=== PATIENT | female | born 1935 | race Caucasian/White ===

== ENCOUNTER 2019-02-16 07:36 | Inpatient (IN) | payer MEDICARE ==
[2019-02-16] VITALS (16 sets, daily range): BP systolic 107–138; BP diastolic 64–88
[~2019-02-16] VITALS: Ht 165.1 cm; Wt 44.5 kg
[~2019-02-16 07:36] MED LIST: ALPHAGAN 5 ML5 ML OPH; DIGOXIN0.125 MG PO; XALATAN 2.5 ML2.5 M1 OPH
[2019-02-16 08:13] LABS: BASO % 0.6 % (0.0-1.0); EOS # 0.1 10*3/uL (0.0-0.4); EOS % 1.9 % (1.0-4.0); HEMATOCRIT 47.7 % (37.0-47.0); HEMOGLOBIN 15.5 g/dl (12.0-16.0); LYMPH % 18.6 % (27.0-41.0); MEAN CELL VOLUME 95.8 fl (81.0-99.0); MEAN CORPUSCULAR HGB 31.1 pg (27.0-31.0); MEAN CORPUSCULAR HGB CONC 32.5 g/dl (33.0-37.0); MEAN PLATELET VOLUME 10.4 fl (9.6-12.3); MONO # 0.5 10*3/uL (0.1-1.0); MONO % 9.8 % (3.0-9.0); NEUT # 3.7 10*3/uL (2.3-7.9); NEUT % 68.9 % (47.0-73.0); PLATELET COUNT AUTOMATED 257 10*3/uL (130-400); RED BLOOD COUNT 4.98 10*6/uL (4.10-5.10); RED CELL DISTRI WIDTH 13.5 % (0-14.5); WHITE BLOOD COUNT 5.3 10*3/uL (4.8-10.8)
[2019-02-16 08:25] LABS: ACT PARTIAL THROMBO TIME 29.1 SECONDS (20.0-32.1)
[2019-02-16 08:30] LABS: ALBUMIN 3.5 gm/dl (3.1-4.5); ALKALINE PHOSPHATASE 92 U/L (45-117); BUN 17 mg/dl (7-24); CHLORIDE 108 mmol/L (98-107); CREATININE 0.78 mg/dL (0.55-1.02); POTASSIUM 3.8 mmol/L (3.5-5.1); SGOT/AST 37 IU/L (3-35); SGPT/ALT 43 U/L (12-78); SODIUM 141 mmol/L (136-145); TOTAL PROTEIN 7.1 gm/dL (6.4-8.2)
[2019-02-16 08:33] LABS: TROPONIN I < 0.015 ng/ml (<0.045)
--- NOTE | 2019-02-16 10:00 | NUR ---
A 83, admitted to , under the services of HEDY Moore DO with a diagnosis of A-FIB RVR. Chief complaint is SHORTNESS OF BREATH FAST HEART RATE-PALPITATIONS. Patient arrived via stretcher from ER. Monitor applied. Initial assessment completed. Vital signs taken and recorded. HEDY MOORE DO notified of admission to the unit. Orders received. See assessment for past medical history, medications and allergies. Patient and/or family oriented to unit. [address] visitation policy reviewed. Clothing/patient valuable form completed. DARWIN FIGUEROA
[2019-02-16] MEDS ORDERED: ELIQUIS2.5 M1 PO (10:40)
--- NOTE | 2019-02-16 10:46 | NUR ---
Notified Dr. Mario of patients arrival to and her med rec has been completed. Brief history was reviewed. No new orders physician to follow up at patients bedside.
[2019-02-16 11:33] LABS: BILIRUBIN NEGATIVE (NEGATIVE); BLOOD 1+ (NEGATIVE); CLARITY SL CLOUDY (CLEAR); COLOR YELLOW (YELLOW); GLUCOSE NEGATIVE (NEGATIVE); KETONE TRACE (NEGATIVE); LEUKO ESTERASE 3+ (NEGATIVE); NITRITE NEGATIVE (NEGATIVE); PH 6.5 (5.0-9.0); UROBILINOGEN 0.2 E.U./dl (0.2-1.0)
[2019-02-16 11:51] LABS: BACTERIA 2+; WBC TNTC wbc/hpf (0-5)
[2019-02-17] VITALS (12 sets, daily range): BP systolic 90–124; BP diastolic 48–74
--- NOTE | 2019-02-17 01:16 | NUR ---
REPEAT B/P MANUALLY IS 98/52 AND PULSE OX 94% ON 2L NC.
[2019-02-17 06:18] LABS: BASO % 0.6 % (0.0-1.0); EOS # 0.1 10*3/uL (0.0-0.4); EOS % 1.4 % (1.0-4.0); HEMATOCRIT 41.6 % (37.0-47.0); HEMOGLOBIN 13.5 g/dl (12.0-16.0); LYMPH # 0.9 10*3/uL (1.3-4.4); LYMPH % 17.6 % (27.0-41.0); MEAN CELL VOLUME 94.8 fl (81.0-99.0); MEAN CORPUSCULAR HGB 30.8 pg (27.0-31.0); MEAN CORPUSCULAR HGB CONC 32.5 g/dl (33.0-37.0); MEAN PLATELET VOLUME 10.3 fl (9.6-12.3); MONO # 0.5 10*3/uL (0.1-1.0); MONO % 10.3 % (3.0-9.0); NEUT # 3.6 10*3/uL (2.3-7.9); NEUT % 69.9 % (47.0-73.0); PLATELET COUNT AUTOMATED 220 10*3/uL (130-400); RED BLOOD COUNT 4.39 10*6/uL (4.10-5.10); RED CELL DISTRI WIDTH 13.2 % (0-14.5); WHITE BLOOD COUNT 5.2 10*3/uL (4.8-10.8)
[2019-02-17 06:40] LABS: BUN 16 mg/dl (7-24); CHLORIDE 107 mmol/L (98-107); CHOLESTEROL 151 mg/dL (<200); CREATININE 0.67 mg/dL (0.55-1.02); FREE T4 1.19 ng/dl (0.76-1.46); HDL CHOLESTEROL 52 mg/dl (40-60); LDL CHOLESTEROL 88 mg/dL (9-159); PHOSPHOROUS 4.2 mg/dL (2.5-4.9); POTASSIUM 3.2 mmol/L (3.5-5.1); SODIUM 141 mmol/L (136-145); TRIGLYCERIDES 55 mg/dl (<150); VLDL CHOLESTEROL 11 mg/dL (6-40)
[2019-02-17 07:46] LABS: VITAMIN D, 25-HYDROXY 37.4 ng/mL (30-100)
--- NOTE | 2019-02-17 08:30 | NUR ---
CARDIZEM DRIP DECREASED FROM 5 MG TO 2.5 MG AT THIS TIME PER ORDERS RECEIVED FROM DR GIBSON DUE TO PT BLOOD PRESSURE RUNNING CONSISTENTLY LOW THROUGHOUT THE NIGHT. BLOOD PRESSURE OBTAINED AND WNL. HR 90S-100S AT THIS TIME. PT SITTING UP IN BED, ALERT ORIENTED AND PLEASANT MOOD. NO COMPLAINTS VOICED BY PT AT THIS TIME. WILL CONTINUE TO MONITOR PT HEART RATE AND BLOOD PRESSURE. CALL LIGHT IN REACH.
--- NOTE | 2019-02-17 09:00 | NUR ---
Tacking Machine Operator in to talk to patient. Patient states lives at home with alone. There are few steps in the home. Physician: efraín dickson Pharmacy: [facility] health services: none Patient's level of ADLs: INDEPENDENT Patient has working utilities: all working DME: none Follow-up physician's appointment after d/c: will be made by [facility] nurse director upon discharge Does patient want to access PORTAL?: no Discharge plan discussed with patient, she states she lives at home alone, she is independent in adls and ambulation, drives, she states she will return home when able and denies any home needs. KAYLA PARRA
--- NOTE | 2019-02-17 14:07 | NUR ---
PT HR-140'S-160. CARDIZEM DRIP INCREASED TO 5MG/HR. PT ASYMPTOMATIC SITTING UP AT SIDE OF BED EATING.
--- NOTE | 2019-02-17 14:10 | NUR ---
CALLED DR. GIBSON SHE WILL CALL ME BACK.
--- NOTE | 2019-02-17 14:14 | NUR ---
CALLED DR. SINGH MADE AWARE PT HR. THEY WILL PUT SOME MEDICATIONS IN.
--- NOTE | 2019-02-17 17:08 | NUR ---
BITUMINOUS PAVING MACHINE OPERATOR CALLS THIS NURSE AND STATES THAT PT HEART RATE IS BETWEEN 170S-180S AT THIS TIME. UPON ENTERING ROOM, PT IS FOUND TO BE UP TO BATHROOM WITH THE HELP OF FAMILY. WILL ASSIST PT BACK TO BED AND CHECK BLOOD PRESSURE. WILL NOTIFY DR SINGH OF PT HEART RATE.
--- NOTE | 2019-02-17 17:29 | NUR ---
NOTIFIED DR SINGH OF PT TACHYCARDIA WITH EXERTION, HR HIGH 220 WHEN PT IS UP TO BATHROOM TO BRUSH TEETH. ALSO NOTIFIED DR SINGH OF PATIENT'S BLOOD PRESSURE OF 96/50 MANUALLY. NEW ORDERS RECEIVED TO STOP PT IV LASIX, GIVE 0.25 DIGOXIN VIA IV NOW, AND THEN GIVE 0.25 MG DIGOXIN VIA IV IN 6 HOURS. WILL ENTER APPROPRIATE ORDERS AND NOTIFY PATIENT OF NEW ORDERS.
--- NOTE | 2019-02-17 17:30 | NUR ---
Hep Lock discontinued to left forearm due to site leaking and causing patient pain. Site asymptomatic. Pressure applied. Sterile dressing applied. RYAN LEWIS
--- NOTE | 2019-02-17 23:57 | NUR ---
2300 - PT'S HR DOWN TO HIGH 60'S SUSTAINED, CARDIZEM DRIP TURNED DOWN TO 2.5MG/HR AFTER LANOXIN WAS GIVEN. 2357 - PT'S HR DOWN TO 50'S SUSTAINED, CARDIZEM DRIP TURNED OFF. WILL CONTINUE TO MONITOR.
[2019-02-18] VITALS: BP 101/61
[2019-02-18 08:00] VITALS: BP 129/78
--- NOTE | 2019-02-18 09:00 | NUR ---
case management visits with patient, she states she will return home when medically stable, patient denies any home needs
[2019-02-18 10:38] LABS: BUN 20 mg/dl (7-24); CHLORIDE 108 mmol/L (98-107); CREATININE 0.56 mg/dL (0.55-1.02); SODIUM 139 mmol/L (136-145)
[2019-02-18 12:00] VITALS: BP 96/70
[2019-02-18] MEDS ORDERED: METOPROLOL SUC100 M1 PO (14:06)
--- NOTE | 2019-02-18 14:52 | NUR ---
DR. SINGH HAS ROUNDED AND PATIENT IS BEING DISCHARGED TO HOME.
--- NOTE | 2019-02-18 15:27 | NUR ---
PATIENT DISCHARGED TO HOME.
== END 2019-02-18 15:27 | disposition home or self-care (01) | DRG 871 ==
LOC: ED 07:36 → EDHOLD 08:53 → 4E 08:53
PROVIDERS: Emergency Medicine; Internal Medicine; ADMIT Internal Medicine
DX: A41.9 Sepsis, unspecified organism (principal); I50.31 Acute diastolic (congestive) heart failure; N39.0 Urinary tract infection, site not specified; I48.20 Chronic atrial fibrillation, unspecified; Z68.1 Body mass index [BMI] 19.9 or less, adult; R09.02 Hypoxemia; D72.810 Lymphocytopenia; E87.8 Other disorders of electrolyte and fluid balance, not elsewhere classified; I08.1 Rheumatic disorders of both mitral and tricuspid valves; R73.9 Hyperglycemia, unspecified; B95.2 Enterococcus as the cause of diseases classified elsewhere; R31.1 Benign essential microscopic hematuria; R63.6 Underweight; Z79.01 Long term (current) use of anticoagulants; Z88.0 Allergy status to penicillin; Z98.42 Cataract extraction status, left eye; Z98.41 Cataract extraction status, right eye; Z90.49 Acquired absence of other specified parts of digestive tract; Z87.891 Personal history of nicotine dependence; Z85.038 Personal history of other malignant neoplasm of large intestine; Z85.840 Personal history of malignant neoplasm of eye; Z79.899 Other long term (current) drug therapy

== ENCOUNTER 2019-04-19 12:48 | Inpatient (IN) | payer MEDICARE ==
[~2019-04-19] VITALS: Ht 165.1 cm; Wt 45.1 kg
[2019-04-19] VITALS (8 sets, daily range): BP systolic 94–109; BP diastolic 56–87
[~2019-04-19 12:48] MED LIST changes: +ELIQUIS2.5 M1 PO; +METOPROLOL SUC100 M1 PO
[2019-04-19 14:09] LABS: BASO % 0.3 % (0.0-1.0); EOS % 0.2 % (1.0-4.0); HEMATOCRIT 38.4 % (37.0-47.0); HEMOGLOBIN 12.5 g/dl (12.0-16.0); LYMPH # 1.1 10*3/uL (1.3-4.4); LYMPH % 12.8 % (27.0-41.0); MEAN CORPUSCULAR HGB 30.9 pg (27.0-31.0); MEAN CORPUSCULAR HGB CONC 32.6 g/dl (33.0-37.0); MEAN PLATELET VOLUME 10.8 fl (9.6-12.3); MONO # 1.2 10*3/uL (0.1-1.0); MONO % 13.9 % (3.0-9.0); NEUT # 6.5 10*3/uL (2.3-7.9); NEUT % 72.5 % (47.0-73.0); PLATELET COUNT AUTOMATED 187 10*3/uL (130-400); RED BLOOD COUNT 4.04 10*6/uL (4.10-5.10); RED CELL DISTRI WIDTH 13.6 % (0-14.5); WHITE BLOOD COUNT 8.9 10*3/uL (4.8-10.8)
[2019-04-19 14:27] LABS: ACT PARTIAL THROMBO TIME 30.5 SECONDS (20.0-32.1); ALBUMIN 3.3 gm/dl (3.1-4.5); ALKALINE PHOSPHATASE 120 U/L (45-117); BUN 28 mg/dl (7-24); CHLORIDE 100 mmol/L (98-107); CREATININE 0.77 mg/dL (0.55-1.02); POTASSIUM 3.9 mmol/L (3.5-5.1); SGOT/AST 35 IU/L (3-35); SGPT/ALT 40 U/L (12-78); SODIUM 135 mmol/L (136-145); TOTAL PROTEIN 7.4 gm/dL (6.4-8.2); TROPONIN I < 0.015 ng/ml (<0.045)
[2019-04-19 14:39] LABS: DIGOXIN 0.15 ng/ml (0.8-2.0); THYROID STIM HORMONE (HS) 2.04 uIU/ml (0.358-4.75)
[2019-04-19 15:11] LABS: BILIRUBIN NEGATIVE (NEGATIVE); BLOOD TRACE-INTACT (NEGATIVE); CLARITY CLEAR (CLEAR); COLOR YELLOW (YELLOW); GLUCOSE NEGATIVE (NEGATIVE); KETONE TRACE (NEGATIVE); LEUKO ESTERASE 2+ (NEGATIVE); NITRITE NEGATIVE (NEGATIVE); SPECIFIC GRAVITY 1.015 (1.005-1.030); UROBILINOGEN 0.2 E.U./dl (0.2-1.0)
[2019-04-19 15:17] LABS: BACTERIA 2+; WBC 51-100 wbc/hpf (0-5)
[2019-04-19 15:18] LABS: MUCOUS 1+
--- NOTE | 2019-04-19 16:29 | NUR ---
A 83, admitted to , under the services of LUIS Holbrook DO with a diagnosis of COUGH, DYSURIA, GENERAL WEAKNESS. Chief complaint is MULTIPLE. Patient arrived via bed from ER. Monitor applied. Initial assessment completed. Vital signs taken and recorded. LUIS HOLBROOK DO notified of admission to the unit. Orders received. See assessment for past medical history, medications and allergies. Patient and/or family oriented to unit. [facility] visitation policy reviewed. Clothing/patient valuable form completed. VENECIA HORTA
[2019-04-19] MEDS ORDERED: METOPROLOL TART75 MG PO (16:31)
[2019-04-19] MEDS ORDERED: CENTRUM SILVER1 EAC1 PO (16:31)
[2019-04-19] MEDS ORDERED: FISH OIL 1,0001 EAC3 PO (16:32)
--- NOTE | 2019-04-19 17:44 | NUR ---
CARDIZEM INCREASED TO 10MG/HR DUE TO HR 120'S
--- NOTE | 2019-04-19 17:46 | NUR ---
ANSWERING SERVICE WAS NOTIFIED OF DR. BERENICE WU. RESPONSE OF NOTIFICATION WAS LEFT MESSAGE. VENECIA HORTA
--- NOTE | 2019-04-19 23:07 | NUR ---
PT'S HR SITTING IN 80S & DIPPING INTO 70S FROM TIME TO TIME. CARDIZEM GTT TITRATED DOWN FROM 10 MG/HR TO 5 MG/HR. WILL MONITOR. MONITOR TECHS NOTIFIED. INSTRUCTED TO NOTIFY RN IF HR>100
--- NOTE | 2019-04-19 23:35 | NUR ---
PT'S HR DROPPING INTO 50S & 60S PER CM. CARDIZEM GTT STOPPED AND DISCONNECTED AT THIS TIME. MANAGER SOURCING INFORMED & INSTRUCTED TO NOTIFY RN IF HR SUSTAINS BELOW 60 OR ABOVE 100. WILL MONITOR.
[2019-04-20] VITALS (7 sets, daily range): BP systolic 101–117; BP diastolic 47–82
[2019-04-20 06:41] LABS: BASO % 0.1 % (0.0-1.0); EOS % 0.5 % (1.0-4.0); HEMATOCRIT 36.5 % (37.0-47.0); HEMOGLOBIN 11.9 g/dl (12.0-16.0); LYMPH # 0.8 10*3/uL (1.3-4.4); LYMPH % 9.8 % (27.0-41.0); MEAN CELL VOLUME 94.1 fl (81.0-99.0); MEAN CORPUSCULAR HGB 30.7 pg (27.0-31.0); MEAN CORPUSCULAR HGB CONC 32.6 g/dl (33.0-37.0); MEAN PLATELET VOLUME 10.4 fl (9.6-12.3); MONO # 0.9 10*3/uL (0.1-1.0); MONO % 11.6 % (3.0-9.0); NEUT # 6.1 10*3/uL (2.3-7.9); NEUT % 77.6 % (47.0-73.0); PLATELET COUNT AUTOMATED 177 10*3/uL (130-400); RED BLOOD COUNT 3.88 10*6/uL (4.10-5.10); RED CELL DISTRI WIDTH 13.6 % (0-14.5); WHITE BLOOD COUNT 7.9 10*3/uL (4.8-10.8)
--- NOTE | 2019-04-20 07:04 | NUR ---
IV CARDIZEM GTT REINITIATED AT 5 MG/HR PER ORDER. PT'S RESTING HR 130S PER CM. AM SHIFT RN AWARE. WILL MONITOR HR.
[2019-04-20 07:10] LABS: ACT PARTIAL THROMBO TIME 30.5 SECONDS (20.0-32.1)
[2019-04-20 07:11] LABS: ALBUMIN 2.8 gm/dl (3.1-4.5); ALKALINE PHOSPHATASE 99 U/L (45-117); CHLORIDE 106 mmol/L (98-107); CHOLESTEROL 115 mg/dL (<200); CREATININE 0.53 mg/dL (0.55-1.02); FREE T4 1.19 ng/dl (0.76-1.46); HDL CHOLESTEROL 45 mg/dl (40-60); LDL CHOLESTEROL 60 mg/dL (9-159); POTASSIUM 3.9 mmol/L (3.5-5.1); SGOT/AST 28 IU/L (3-35); SGPT/ALT 31 U/L (12-78); SODIUM 139 mmol/L (136-145); TOTAL PROTEIN 6.8 gm/dL (6.4-8.2); TRIGLYCERIDES 50 mg/dl (<150); VLDL CHOLESTEROL 10 mg/dL (6-40)
[2019-04-20 07:16] LABS: BUN 17 mg/dl (7-24)
--- NOTE | 2019-04-20 08:00 | NUR ---
IV CARDIZEM GTT INCREASED TO 10MG/HR FOR HR CONSISTENTLY RUNNING 120-130. BP 116/65. NO C/O AT THIS TIME FROM PATIENT.
--- NOTE | 2019-04-20 08:05 | NUR ---
CARDIZEM DRIP INCREASED TO 10MG/HR. PT HR AFIB ON LOADING SUPERVISOR-HR 120-130'S, BP 116/68. CALL LIGHT WITHIN REACH.
--- NOTE | 2019-04-20 08:39 | NUR ---
ASSESSMENT COMPLETED AND DOCUMENTED, PATIENT IS RESTING COMFORTABLY AT THIS TIME, CALL LIGHT IN REACH
--- NOTE | 2019-04-20 09:00 | NUR ---
Nipple Maker in to talk to patient. Patient states lives at home alone with her 4 children checking in on her. There are 4 steps in the home. Physician: Dr. Tawanda Harden Pharmacy: [place] Home health services: none Patient's level of ADLs: INDEPENDENT Patient has working utilities: yes DME: none Follow-up physician's appointment after d/c: will be made by the hospitalist nurse director upon discharge Does patient want to access PORTAL?: no Discharge plan discussed with patient. She lives at home alone with her 4 children checking in on her. She is independent in her ADLs and ambulation. Discussed home health care services and she denies any home needs at this time. She drives. When medically stable she will be discharged to home. Cardiology consult, ash brown for UTI, UC - [facility]. LUZ ELENA CAMARILLO
--- NOTE | 2019-04-20 10:10 | NUR ---
HR IN THE 70'S. CARDIZEM GTT DECREASED TO 5MG/HR. BP 110/66. PT RESTING IN BED WITH NO C/O CHEST PAIN, PALPITATIONS OR SOB.
--- NOTE | 2019-04-20 11:30 | NUR ---
IV CARDIZEM DC'D FOR INTERMITTENT DROPPING OF HR INTO THE 40'S. PT ASYMPTOMATIC. COOPERATIVE AT THIS TIME.
--- NOTE | 2019-04-20 11:35 | NUR ---
CARDIZEM DRIP STOPPED AT THIS TIME FOR HR DROPPING TO 40-50'S. PT ASYMPTOMATIC.
--- NOTE | 2019-04-20 11:37 | NUR ---
PT HR CURRENTLY AFIB-70'S.
--- NOTE | 2019-04-20 11:53 | NUR ---
DR TEAGUE MADE AWARE OF PTS STATUS, AFIB WITH HR DROPPING TO 40-50'S AT TIMES, STEADILY 70'S, WHICH CARDIZEM DRIP WAS STOPPED. UPDATED ON CURRENT MEDICATIONS-METOPROLOL, STATES TO INCREASE METOPROLOL TO 100MG BID AND TO KEEP CARDIZEM DRIP TURNED OFF.
--- NOTE | 2019-04-20 12:43 | NUR ---
HR REMAINS IN THE 70'S. PT SITTING UP IN BED VISITING WITH FAMILY. NO VOICED C/O AT THIS TIME.
--- NOTE | 2019-04-20 13:37 | NUR ---
PATIENT IS SITTING UP IN BED EATING LUNCH AND VISITING FAMILY, NO COMPLAINTS AT THIS TIME
--- NOTE | 2019-04-20 14:30 | NUR ---
Occupational Therapy evaluation completed on 4 with full eval to follow. Daughter in law and grand daughter present for eval. Precautions include IV UE, cough,congestion, malaise,low complexity level 47512. Recommend OT for energy conservation/work simplification and activity tolerance. Patient declined stating that she would be fine upon d/c. Family in agreement. Discharge OT after evaluation. Thank you. Tali Ortiz OTR/L
--- NOTE | 2019-04-20 17:33 | NUR ---
PT RESTING IN BED, PT AFIB HR IN 90'S. NO DISTRESS NOTED. CALL LIGHT WITHIN REACH.
--- NOTE | 2019-04-20 19:45 | NUR ---
PT AWAKE SITTING UP IN BED. PT DENIES ANY NEEDS AT THIS TIME. PT REMAINS IN AFIB. HR 90S PER CM. WILL MONITOR. CALL LIGHT IN REACH.
--- NOTE | 2019-04-20 20:46 | NUR ---
PO METOPROLOL SCHEDULED FOR 2199 GIVEN EARLY DUE TO HR STEADY IN IN 110S-130S PER CM. PT REACHES HIGH 180S MOMENTARILY WHEN UP AND OOB. RN IN WITH PT AT THAT TIME TO ASSIST PT BACK INTO BED. PT ENCOURAGED TO BEAR DOWN TO SLOW HR. HR WENT FROM 160S TO 110S FOLLOWING VAGAL MANEUVER. PT VERBALIZES NO COMPLAINTS & DENIES ANY PAIN/DISCOMFORT. WILL GIVE ORAL MEDICATION TIME TO WORK AND NOTIFY DR IF HR SPIKES UP AGAIN. HR CURRENTLY 100S-120S PER CM. BED LOCKED IN LOW POSITION. CALL LIGHT IN REACH.
[2019-04-21] VITALS (8 sets, daily range): BP systolic 82–128; BP diastolic 48–78
--- NOTE | 2019-04-21 04:10 | NUR ---
NOTIFIED OF HR SITTING 120S-150S PER CM. DISCUSSED CURRENT MEDS AND DISCONTINUED CARDIZEM GTT. INSTRUCTED TO GIVE 5 MG IV LOPRESSOR X1 DOSE.
--- NOTE | 2019-04-21 04:27 | NUR ---
IV LOPRESSOR ADMINISTERED SLOWLY PER ONE TIME ORDER FOR ELEVATED HR AT REST. WILL MONITOR EFFECTIVENESS. CALL LIGHT IN REACH.
--- NOTE | 2019-04-21 05:29 | NUR ---
EARLIER IV METOPROLOL EFFECTIVE. PT'S HR SITTING 100S-110S PER CM. WILL MONITOR. CALL LIGHT IN REACH.
[2019-04-21 07:04] LABS: BASO % 0.4 % (0.0-1.0); EOS # 0.1 10*3/uL (0.0-0.4); EOS % 1.8 % (1.0-4.0); HEMATOCRIT 39.2 % (37.0-47.0); HEMOGLOBIN 12.8 g/dl (12.0-16.0); LYMPH # 0.8 10*3/uL (1.3-4.4); LYMPH % 13.7 % (27.0-41.0); MEAN CELL VOLUME 94.2 fl (81.0-99.0); MEAN CORPUSCULAR HGB 30.8 pg (27.0-31.0); MEAN CORPUSCULAR HGB CONC 32.7 g/dl (33.0-37.0); MEAN PLATELET VOLUME 10.6 fl (9.6-12.3); MONO # 0.7 10*3/uL (0.1-1.0); MONO % 12.5 % (3.0-9.0); NEUT # 3.9 10*3/uL (2.3-7.9); NEUT % 71.1 % (47.0-73.0); PLATELET COUNT AUTOMATED 198 10*3/uL (130-400); RED BLOOD COUNT 4.16 10*6/uL (4.10-5.10); RED CELL DISTRI WIDTH 13.4 % (0-14.5); WHITE BLOOD COUNT 5.5 10*3/uL (4.8-10.8)
[2019-04-21 07:34] LABS: ALBUMIN 2.8 gm/dl (3.1-4.5); ALKALINE PHOSPHATASE 98 U/L (45-117); BUN 15 mg/dl (7-24); CHLORIDE 110 mmol/L (98-107); CREATININE 0.69 mg/dL (0.55-1.02); POTASSIUM 3.9 mmol/L (3.5-5.1); SGOT/AST 23 IU/L (3-35); SGPT/ALT 29 U/L (12-78); SODIUM 143 mmol/L (136-145); TOTAL PROTEIN 6.9 gm/dL (6.4-8.2)
--- NOTE | 2019-04-21 08:08 | NUR ---
DR TEAGUE HERE AT THIS TIME, MADE AWARE OF PT'S HR 170'S AFIB PER CM, BLOOD PRESSURE 108/68. ORDERS RECEIVED.
--- NOTE | 2019-04-21 08:17 | NUR ---
PT'S HR AFIB RATE 170'S AFTER ATTEMPTS AT USING THE VAGAL MANEUVER, BP 108/68. PT RESTING IN BED, NO DISTRESS NOTED/NO SOB NOTED. 10MG IV PUSH CARDIZEM GIVEN AT THIS TIME PER ORDER. PT CLOSELY MONITORED.
--- NOTE | 2019-04-21 08:25 | NUR ---
DR TEAGUE MADE AWARE OF HR FOLLOWING 10MG IV PUSH CARDIZEM-HR 110-150'S, MORES SO CONSISTENTLY 120'S. BP 98/50. STATES TO RECHECK BP IN HALF HOUR AND IF BP ABOVE 100 OK TO GIVE PO CARDIZEM AND METOPROLOL.
--- NOTE | 2019-04-21 21:13 | NUR ---
PIG BREEDER CALLED AND STATES PT HR UP TO 148, CURRENTLY 140. PT UP TO BATHROOM. RN IN ROOM AND PO METOPROLOL ADMINISTERED. PT DENIES ANY PAIN/PALPITATIONS/SOB. NO OTHER COMPLAINTS VOICED. WILL MONITOR EFFECTIVENESS.
--- NOTE | 2019-04-21 21:17 | NUR ---
EMBLEM FUSER TENDER CALLED STATING HR 50S PER CM. RN IN TO SEE PATIENT. PT ASYMPTOMATIC. RN EDUCATED PT ON S/S TO NOTIFY RN. EMBLEM FUSER TENDER NOTIFIED TO CALL RN IF HR DROPS BELOW 50. WILL MONITOR.
--- NOTE | 2019-04-21 22:30 | NUR ---
HR REMAINS IN 50S. AFIB. PT REMAINS ASYMPTOMATIC. WILL MONITOR. CALL LIGHT IN REACH.
--- NOTE | 2019-04-21 23:17 | NUR ---
PT HR 50S PER CM. MANUAL BP NOW 82/48. NOTIFIED. DISCUSSED CURRENT MEDICATIONS. NEW ORDER FOR FLUID BOLUS TO FOLLOW.
--- NOTE | 2019-04-21 23:27 | NUR ---
500 CC FLUID BOLUS INITIATED PER ORDER PLACED BY .
[2019-04-22] VITALS: BP 82/48; BP 92/58; BP 92/66
--- NOTE | 2019-04-22 00:05 | NUR ---
NOTIFIED OF BP UP TO 92/58 MANUALLY FOLLOWING 500 CC BOLUS. AWARE PT'S LUNGS ARE CLEAR, BUT HAS HX OF CHF. WILL REVIEW CHART AND PLACE ORDERS NEEDED.
--- NOTE | 2019-04-22 00:10 | NUR ---
IVF INITIATED AT 80 ML/HR PER ORDER.
[2019-04-22 03:35] VITALS: BP 115/68
--- NOTE | 2019-04-22 03:38 | NUR ---
PT'S HR UP TO 110S PER CM WHEN UP OOB. PT RETURNED TO BED, HR SITTING IN 90S. PT ASYMPTOMATIC. BP NOW 115/68. IVF INFUSING PER ORDER. WILL MONITOR.
[2019-04-22 05:15] VITALS: BP 113/79
[2019-04-22 06:21] LABS: BASO % 0.5 % (0.0-1.0); EOS # 0.1 10*3/uL (0.0-0.4); EOS % 2.1 % (1.0-4.0); HEMATOCRIT 37.5 % (37.0-47.0); HEMOGLOBIN 12.3 g/dl (12.0-16.0); LYMPH # 0.9 10*3/uL (1.3-4.4); LYMPH % 19.9 % (27.0-41.0); MEAN CELL VOLUME 93.3 fl (81.0-99.0); MEAN CORPUSCULAR HGB 30.6 pg (27.0-31.0); MEAN CORPUSCULAR HGB CONC 32.8 g/dl (33.0-37.0); MONO # 0.5 10*3/uL (0.1-1.0); MONO % 12.2 % (3.0-9.0); NEUT # 2.8 10*3/uL (2.3-7.9); NEUT % 64.6 % (47.0-73.0); PLATELET COUNT AUTOMATED 206 10*3/uL (130-400); RED BLOOD COUNT 4.02 10*6/uL (4.10-5.10); RED CELL DISTRI WIDTH 13.2 % (0-14.5); WHITE BLOOD COUNT 4.3 10*3/uL (4.8-10.8)
[2019-04-22 06:52] LABS: ALBUMIN 2.4 gm/dl (3.1-4.5); ALKALINE PHOSPHATASE 76 U/L (45-117); BUN 15 mg/dl (7-24); CHLORIDE 112 mmol/L (98-107); CREATININE 0.56 mg/dL (0.55-1.02); SGOT/AST 21 IU/L (3-35); SGPT/ALT 23 U/L (12-78); SODIUM 143 mmol/L (136-145); TOTAL PROTEIN 5.9 gm/dL (6.4-8.2)
[2019-04-22 07:30] VITALS: BP 118/58
--- NOTE | 2019-04-22 10:21 | NUR ---
DR. RAPHAEL IN TO SEE PATIENT. OKAY TO D/C FLUIDS NOW. 500CC WAS ORDERED, PT RECEIVED 350 OF THE ORDERED FLUID
--- NOTE | 2019-04-22 11:00 | NUR ---
Deli Cutter Slicer in to see patient. No new needs or request at this time. Discussed home health care services and she denies any home needs at this time. She states her 4 children check on her regularly. HR 102 this morning. Cardiology changing her medications. Treating UTI with rocephin.
[2019-04-22 12:00] VITALS: BP 103/72
[2019-04-22 12:26] VITALS: BP 112/66
[2019-04-22] MEDS ORDERED: METOPROLOL TART50 M1 PO (14:43)
[2019-04-22] MEDS ORDERED: CARDIZEM CD120 M2 PO (14:43)
--- NOTE | 2019-04-22 15:11 | NUR ---
Discharge instructions reviewed with patient/family. Patient receptive and verbalizes understanding. Follow-up care arranged. Written instructions given to patient/family. TELE REMOVED, IV REMOVED, DRESSING APPLIED. PT DECLINED WHEELCHAIR, FAMILY WITH PATIENT KATIE GALARZA
== END 2019-04-22 15:11 | disposition home or self-care (01) | DRG 690 ==
LOC: ED 12:48 → EDHOLD 14:59 → 4E 14:59
PROVIDERS: Emergency Medicine; Family Medicine; Hospitalist; ADMIT Internal Medicine
DX: N39.0 Urinary tract infection, site not specified (principal); E44.1 Mild protein-calorie malnutrition; E87.1 Hypo-osmolality and hyponatremia; I50.32 Chronic diastolic (congestive) heart failure; Z68.1 Body mass index [BMI] 19.9 or less, adult; I48.0 Paroxysmal atrial fibrillation; R73.9 Hyperglycemia, unspecified; E87.8 Other disorders of electrolyte and fluid balance, not elsewhere classified; Z88.0 Allergy status to penicillin; Z98.42 Cataract extraction status, left eye; Z98.41 Cataract extraction status, right eye; Z90.49 Acquired absence of other specified parts of digestive tract; Z87.891 Personal history of nicotine dependence; Z80.0 Family history of malignant neoplasm of digestive organs

== ENCOUNTER 2019-06-16 09:34 | Inpatient (IN) | payer MEDICARE ==
[~2019-06-16] VITALS: Ht 165.1 cm; Wt 42.7 kg
[~2019-06-16 09:34] MED LIST changes: -ALPHAGAN 5 ML5 ML OPH; +ALPHAGAN P 10 M10 M1 OPH; +CARDIZEM CD120 M2 PO; +CENTRUM SILVER1 EAC1 PO; +FISH OIL 1,0001 EAC3 PO; +METOPROLOL TART50 M1 PO; +METOPROLOL TART75 MG PO; +XALATAN 0.005%2.5 ML INTRAOC; -XALATAN 2.5 ML2.5 M1 OPH
[2019-06-16 09:43] VITALS: BP 86/37
[2019-06-16 10:19] LABS: BASO % 0.5 % (0.0-1.0); EOS # 0.1 10*3/uL (0.0-0.4); EOS % 1.4 % (1.0-4.0); HEMATOCRIT 40.9 % (37.0-47.0); HEMOGLOBIN 13.4 g/dl (12.0-16.0); LYMPH # 0.7 10*3/uL (1.3-4.4); LYMPH % 16.9 % (27.0-41.0); MEAN CELL VOLUME 94.2 fl (81.0-99.0); MEAN CORPUSCULAR HGB 30.9 pg (27.0-31.0); MEAN CORPUSCULAR HGB CONC 32.8 g/dl (33.0-37.0); MEAN PLATELET VOLUME 9.9 fl (9.6-12.3); MONO # 0.4 10*3/uL (0.1-1.0); MONO % 8.3 % (3.0-9.0); NEUT % 72.4 % (47.0-73.0); PLATELET COUNT AUTOMATED 190 10*3/uL (130-400); RED BLOOD COUNT 4.34 10*6/uL (4.10-5.10); RED CELL DISTRI WIDTH 13.2 % (0-14.5); WHITE BLOOD COUNT 4.2 10*3/uL (4.8-10.8)
[2019-06-16 10:33] LABS: ALBUMIN 3.6 gm/dl (3.1-4.5); ALKALINE PHOSPHATASE 66 U/L (45-117); BUN 17 mg/dl (7-24); CHLORIDE 108 mmol/L (98-107); POTASSIUM 4.2 mmol/L (3.5-5.1); SGOT/AST 18 IU/L (3-35); SGPT/ALT 25 U/L (12-78); SODIUM 142 mmol/L (136-145); TOTAL PROTEIN 7.2 gm/dL (6.4-8.2)
[2019-06-16 11:27] LABS: BILIRUBIN NEGATIVE (NEGATIVE); BLOOD 1+ (NEGATIVE); CLARITY CLOUDY (CLEAR); GLUCOSE NEGATIVE (NEGATIVE); KETONE NEGATIVE (NEGATIVE); SPECIFIC GRAVITY 1.005 (1.005-1.030)
[2019-06-16 11:28] LABS: COLOR YELLOW (YELLOW); NITRITE NEGATIVE (NEGATIVE); UROBILINOGEN 0.2 E.U./dl (0.2-1.0)
[2019-06-16 11:29] LABS: BACTERIA 3+; LEUKO ESTERASE 3+ (NEGATIVE); RBC 31-40 rbc/hpf (0-2); WBC TNTC wbc/hpf (0-5)
[2019-06-16 12:00] VITALS: BP 90/62
--- NOTE | 2019-06-16 13:55 | NUR ---
Medication verifed per family.
[2019-06-16 15:50] VITALS: BP 128/58
[2019-06-16 16:15] VITALS: BP 109/72
--- NOTE | 2019-06-16 16:15 | NUR ---
Time: 1614 A 83 year old FEMALE admitted to 5E under services of HEDY MOORE DO. Pt. arrived via bed from ER. Chief complaint: ABD PAIN, UTI. LA NENA HYDE
--- NOTE | 2019-06-16 16:25 | NUR ---
DR. LEE IN ROOM TO SEE PT.
--- NOTE | 2019-06-16 17:04 | NUR ---
CALLED DR. GALARZA AWARE PT MEDICATIONS ARE VERIFED AND NEED ORDERED.
--- NOTE | 2019-06-16 18:00 | NUR ---
PT RESTING IN BED WITH VISITORS AT HER SIDE. TOLERATED ROUTINE ANTIBIOTICS AT THIS TIME. CALL LIGHT IN REACH.
[2019-06-16 20:00] VITALS: BP 119/83
--- NOTE | 2019-06-16 22:48 | NUR ---
24 HR chart check completed.
[2019-06-17] VITALS: BP 115/82
[2019-06-17 06:51] LABS: BASO % 0.6 % (0.0-1.0); EOS # 0.1 10*3/uL (0.0-0.4); EOS % 2.3 % (1.0-4.0); HEMATOCRIT 36.9 % (37.0-47.0); HEMOGLOBIN 12.2 g/dl (12.0-16.0); LYMPH # 0.9 10*3/uL (1.3-4.4); LYMPH % 24.9 % (27.0-41.0); MEAN CELL VOLUME 91.3 fl (81.0-99.0); MEAN CORPUSCULAR HGB 30.2 pg (27.0-31.0); MEAN CORPUSCULAR HGB CONC 33.1 g/dl (33.0-37.0); MEAN PLATELET VOLUME 10.1 fl (9.6-12.3); MONO # 0.3 10*3/uL (0.1-1.0); MONO % 9.9 % (3.0-9.0); NEUT # 2.1 10*3/uL (2.3-7.9); PLATELET COUNT AUTOMATED 162 10*3/uL (130-400); RED BLOOD COUNT 4.04 10*6/uL (4.10-5.10); RED CELL DISTRI WIDTH 13.1 % (0-14.5); WHITE BLOOD COUNT 3.5 10*3/uL (4.8-10.8)
[2019-06-17 07:19] LABS: BUN 12 mg/dl (7-24); CHLORIDE 112 mmol/L (98-107); CREATININE 0.65 mg/dL (0.55-1.02); POTASSIUM 3.7 mmol/L (3.5-5.1); SODIUM 143 mmol/L (136-145)
--- NOTE | 2019-06-17 07:47 | NUR ---
PHYSICAL THERAPY Screen and PT eval received will follow, thank you Bailey Salguero PT
[2019-06-17 08:00] VITALS: BP 130/86
--- NOTE | 2019-06-17 08:22 | NUR ---
PT RESTING IN BED. NO DISTRESS NOTED. WILL MONITOR
--- NOTE | 2019-06-17 09:32 | NUR ---
Occupational therapy orders and nursing screen received. Will follow up with patient. Thank you. Елена Masters, OTR/L
[2019-06-17 12:00] VITALS: BP 85/53
--- NOTE | 2019-06-17 13:47 | NUR ---
Motorcycle Tester in to talk to patient. Patient states lives at HOME with ALONE. There are BASEMENT steps in the home. Physician: IGNACIO Pharmacy: [facility] services: NONE Patient's level of ADLs: INDEPENDENT Patient has working utilities: YES DME: [facility] Follow-up physician's appointment after d/c: WILL BE MADE BY HOSPITALIST NURSE DIRECTOR ON DISCHARGE Does patient want to access PORTAL?: NO Discharge plan PT LIVES AT HOME ALONE AND IS INDEPENDENT IN HER CARE. FAMILY AT BEDSIDE DURING VISIT AND STATES PT DOES WELL AT HOME ALONE BUT DAUGHTER IS GOING TO BE STAYING WITH HER FOR A WHILE. DENIES ANY NEEDS AT HOME ON DISCHARGE. CAN BE DISCHARGED TO HOME WHEN MEDICALLY STABLE. WILL CONTINUE TO FOLLOW. FAMILY WILL TRANSPORT HOME.. ANG DELGADILLO
--- NOTE | 2019-06-17 15:15 | NUR ---
Occupational Therapy evaluation completed and full eval to follow. Precautions include low vision deficits d/t glaucoma, IV UE,mild memory impairments, low complexity level 41893. Daughter from out of town staying with patient for a few days and son lives locally. OTR recommended OT per poc and home health OT,PT,SN and [facility] since son concerned about patient not eating properly. Thank you for this referral. Tali Ortiz OTR/l
--- NOTE | 2019-06-17 15:55 | NUR ---
PHYSICAL THERAPY Maria Estheral completed low level of complexity [id number] recomend assisted living or home with supervision due to cognitive and visual concerns. Full report to follow Per family pt will go home and they will be staying with her and agreeable to for home sasfety assessment. Will follow for one to two sessions to ensure consistancy. Nikki Salguero PT
[2019-06-17 16:00] VITALS: BP 99/61
--- NOTE | 2019-06-17 17:39 | NUR ---
Discharge instructions reviewed with patient/family. Patient receptive and verbalizes understanding. Follow-up care arranged. Written instructions given to patient/family. GAVINO IVY
== END 2019-06-17 18:15 | disposition home or self-care (01) | DRG 689 ==
LOC: ED 09:34 → EDHOLD 13:51 → 5E 13:51 → EDHOLD 14:37 → 5E 15:04
PROVIDERS: Internal Medicine; Nurse Practitioner Family; ADMIT Internal Medicine
DX: N39.0 Urinary tract infection, site not specified (principal); G93.41 Metabolic encephalopathy; E87.2 Acidosis; I50.32 Chronic diastolic (congestive) heart failure; R31.9 Hematuria, unspecified; E87.8 Other disorders of electrolyte and fluid balance, not elsewhere classified; I48.0 Paroxysmal atrial fibrillation; Z87.891 Personal history of nicotine dependence; Z80.0 Family history of malignant neoplasm of digestive organs; Z79.01 Long term (current) use of anticoagulants; Z79.899 Other long term (current) drug therapy

== ENCOUNTER 2023-12-12 09:33 | Emergency (ER) | payer MEDICARE ==
[~2023-12-12] VITALS: Ht 165.1 cm; Wt 47.4 kg
[~2023-12-12 09:33] MED LIST changes: +ATORVASTATIN CA10 M1 PO; +DIGOXIN125 MCG PO; +FLUOXETINE HCL10 M1 PO; +FUROSEMIDE20 M1 PO; +METOPROLOL SUCC25 M2 PO; +MIDODRINE HCL10 MG PO; +MYRBETRIQ50 M1 PO
[2023-12-12] MEDS ORDERED: LORazepam 2 MG/ML VIAL IV ONE (09:45)
[2023-12-12 10:19] LABS: ACT PARTIAL THROMBO TIME 26.2 SECONDS (20.0-32.1)
[2023-12-12 10:24] LABS: ALKALINE PHOSPHATASE 71 U/L (46-116); BUN 11 mg/dl (9-23); CHLORIDE 106 mmol/L (98-107); LIPASE 48 U/L (12-53); SGPT/ALT 29 U/L (5-49); TOTAL PROTEIN 6.8 gm/dL (6.0-8.0)
[2023-12-12] MEDS ORDERED: LATANOPROST2.5 ML OP (10:44)
[2023-12-12 10:48] LABS: BASO % 0.2 % (0.0-1.0); EOS # 0.1 10*3/uL (0.0-0.4); EOS % 1.1 % (1.0-4.0); HEMATOCRIT 39.4 % (37.0-47.0); LYMPH # 0.6 10*3/uL (1.3-4.4); MEAN CELL VOLUME 93.4 fl (81.0-99.0); MEAN CORPUSCULAR HGB 29.9 pg (27.0-31.0); MEAN PLATELET VOLUME 9.9 fl (9.6-12.3); MONO # 0.4 10*3/uL (0.1-1.0); MONO % 8.1 % (3.0-9.0); NEUT # 3.7 10*3/uL (2.3-7.9); NEUT % 78.4 % (47.0-73.0); PLATELET COUNT AUTOMATED 174 10*3/uL (130-400); RED BLOOD COUNT 4.22 10*6/uL (4.10-5.10); RED CELL DISTRI WIDTH 13.8 % (0-14.5); WHITE BLOOD COUNT 4.7 10*3/uL (4.8-10.8)
[2023-12-12] MEDS ORDERED: LORazepam 0.5 MG TAB PO ONE (23:45)
[2023-12-13] MEDS ORDERED: APIXABAN 5 MG TAB PO ONE (04:35)
[2023-12-13] MEDS ORDERED: Metoprolol Tartrate 5 MG/5 ML VIAL IV ONE ×4 (04:35→05:30)
[2023-12-13 04:59] LABS: BUN 14 mg/dl (9-23); CHLORIDE 107 mmol/L (98-107)
[2023-12-13] MEDS ORDERED: Diltiazem Hydrochloride 25 MG/5 ML VIAL IV ONE (06:15)
== END 2023-12-13 07:30 | disposition short-term general hospital (02) ==
LOC: ED 09:33
PROVIDERS: Emergency Medicine; Internal Medicine
DX: S42.211A Unspecified displaced fracture of surgical neck of right humerus, initial encounter for closed fracture (principal); I48.20 Chronic atrial fibrillation, unspecified; I10 Essential (primary) hypertension; R10.9 Unspecified abdominal pain; R11.2 Nausea with vomiting, unspecified; Z98.890 Other specified postprocedural states; Z87.891 Personal history of nicotine dependence; W19.XXXA Unspecified fall, initial encounter; Y93.89 Activity, other specified; Y92.89 Other specified places as the place of occurrence of the external cause; Y99.8 Other external cause status

== ENCOUNTER 2024-06-13 19:00 | Inpatient (IN) | payer OTHER ==
[~2024-06-13 19:00] MED LIST changes: +AMIODARONE HYD200 MG PO; +BRIMONIDINE TAR OT; +LATANOPROST2.5 ML OP; +ROPINIROLE HY0.25 MG PO; +[UNRECOGNIZED DRUG - OTHER] T
[2024-06-14 00:30] VITALS: BP 89/62
[2024-06-14] MEDS ORDERED: BISACODYL 10 MG SUPP R PRN (00:30)
[2024-06-14] MEDS ORDERED: ATROPINE SULFATE 1% 2 ML BOTTLE SL PRN (00:30)
[2024-06-14] MEDS ORDERED: ACETAMINOPHEN 650 MG SUPP R PRN (00:30)
[2024-06-14] MEDS ORDERED: DIAZEPAM 10 MG/2 ML SYR IV PRN (00:30)
[2024-06-14] MEDS ORDERED: MORPHINE Sulfate 2 MG/ML SYR IV PRN (00:30)
[2024-06-15] MEDS ORDERED: MORPHINE Sulfate 50 MG in SODIUM CHLORIDE 0.9% 45 ML IV SCH (11:10)
== END 2024-06-15 17:37 ==
LOC: EDHOLD 19:00
PROVIDERS: ADMIT Internal Medicine; ATTEND Internal Medicine
DX: I21.4 Non-ST elevation (NSTEMI) myocardial infarction (principal); J18.9 Pneumonia, unspecified organism; N17.0 Acute kidney failure with tubular necrosis; J96.00 Acute respiratory failure, unspecified whether with hypoxia or hypercapnia; E87.20 Acidosis, unspecified; J90 Pleural effusion, not elsewhere classified; F03.93 Unspecified dementia, unspecified severity, with mood disturbance; I50.9 Heart failure, unspecified; R73.9 Hyperglycemia, unspecified; I48.91 Unspecified atrial fibrillation; S30.0XXA Contusion of lower back and pelvis, initial encounter; Z66 Do not resuscitate; E78.5 Hyperlipidemia, unspecified; S50.02XA Contusion of left elbow, initial encounter; L89.122 Pressure ulcer of left upper back, stage 2; L89.112 Pressure ulcer of right upper back, stage 2; Z51.5 Encounter for palliative care; X58.XXXA Exposure to other specified factors, initial encounter; Y93.89 Activity, other specified; Y92.89 Other specified places as the place of occurrence of the external cause; Y99.8 Other external cause status